=== PATIENT | male | born 1925 | race Caucasian/White ===

== ENCOUNTER 2016-09-16 09:31 | Emergency (ER) | payer MEDICARE, OTHER ==
[~2016-09-16 09:31] MED LIST: ASPI81 PO; CARB0.5D16 EACH EYE; CARB25TA PO; CEFT1INJ IV; DONE10TA14 PO; FERR324T4 PO; MEMA28CA PO; MILKSUS5 PO; PROS5TAB2 PO; STOO100C PO; TAB-TAB PO; TAMS0.4C67 PO; TOVI4TAB PO; VITA-83 PO; VITA100020 IM; VITATAB25 PO
[2016-09-16 09:38] VITALS: BP 127/56; PULSE 73; RESP 14; TEMP 97.8; O2SAT 94
[2016-09-16] MEDS ORDERED: TETANUS/DIPHTHERIA TOXOID ADULT 0.5 ML VIAL IM ONE (09:45)
--- NOTE | 2016-09-16 10:10 | PD ---
HPI Chief Complaint: Fall Time Seen by Provider: 09:36 Travel History International Travel<30 days: No Contact w/Intl Traveler<30days: No Traveled to known affect area: No History of Present Illness HPI Diagnoses an 89-year-old gentleman with history of hypertension, BPH, who is wheelchair-bound who presents today after having a mechanical fall out of his wheelchair. The patient resides in a jail and apparently fell forward will try to get out of his wheelchair. He reportedly struck his head with no loss of consciousness. The patient has laceration to his left upper scalp. Patient also has a small skin tear to his left hand. He reports pain in his head. He denies any neck pain. He denies any back pain. He also reports pain on his left elbow. There are no other complaints time my examination. The patient was unsure of his last tetanus shot however through records were able to ascertain that he had a tetanus shot in 2013. PFSH Past Medical History Anemia: Yes Autoimmune Disease: No Blood Disorders: No Anxiety: No Depression: Yes Cancer: Yes (SKIN) Cardiovascular Problems: Yes Chemotherapy: No Congestive Heart Failure: Yes Cerebrovascular Accident: Yes Coronary Artery Disease: Yes Dementia: Yes Diabetes: No Diminished Hearing: No Endocrine: No Gastrointestinal Disorders: Yes (CONSTIPATION) GERD: Yes Glaucoma: No Genitourinary: Yes (BPH) Headaches: No Hepatitis: No Hiatal Hernia: No Hypertension: Yes Immune Disorder: No Musculoskeletal: No Neurologic: Yes (PARKINSON'S ) Parkinson's Disease: Yes Psychiatric: No Reproductive: No Respiratory: No Immunizations Current: Yes Migraines: No Radiation Therapy: No Renal Failure: Yes Seizures: Yes Thyroid Disease: No Ulcer: No Past Surgical History Appendectomy: No Cholecystectomy: Yes Other Surgery: Yes Social History Alcohol Use: No Tobacco Use: No Allergies-Medications (Allergen,Severity, Reaction): Coded Allergies: Penicillin (Verified Allergy, Severe, Rash, 09/16/16) Reported Meds & Prescriptions Reported Meds & Active Scripts Active Reported Tylenol (Acetaminophen) 325 Mg Tab 650 Mg PO Q4H PRN Gabapentin 100 Mg Cap 100 Mg PO HS Tamsulosin (Tamsulosin HCl) 0.4 Mg Cap 0.4 Mg PO HS Donepezil 10 Mg Tab 10 Mg PO HS Vitamin D3 (Cholecalciferol) 1,000 Unit Chew 1,000 Units CHEW DAILY Potassium Chloride ER (Potassium Chloride) 10 Meq Cap 10 Meq PO DAILY Ditropan (Oxybutynin Chloride) 5 Mg Tab 5 Mg PO DAILY Namenda Xr (Memantine) 28 Mg Caper 28 Mg PO DAILY Vitamin C (Ascorbic Acid) 500 Mg Chew 500 Mg CHEW DAILY Refresh Opth Drops (Polyvinyl Alcohol-Povidone Opth Drops) 1.4-0.6% Drops 1-2 Drop EACH EYE PRN PRN Ferrous Sulfate 325 Mg Tab 325 Mg PO BID Colace (Docusate Sodium) 100 Mg Cap 100 Mg PO BID Artificial Tears Opth Drops (Artificial Tear Solution Opth Drops) 0.1-0.3% Soln Finasteride 5 Mg Tab 5 Mg PO DAILY Do not crush. Zantac (Ranitidine HCl) 150 Mg Tab 150 Mg PO DAILY Cyanocobalamin Inj (Cyanocobalamin) 1,000 Mcg/Ml Inj 1,000 Mcg IM Q30D Milk of Magnesia Liq (Magnesium Hydroxide) 400 Mg/5 Ml Susp 30 Ml PO Q6H PRN Systane Opth Drops (Polyethylene Glycol-Propylene Glycol Opth Drp) 0.4-0.3% Soln 1-2 Drop EACH EYE HS Melatonin 5 Mg Tab 3 Mg PO HS Sinemet (Carbidopa-Levodopa) 25-100 Mg Tab 1 Tab PO TID Aspirin 81 Mg Chew 81 Mg CHEW DAILY Review of Systems Except as stated in HPI: all other systems reviewed are Neg General / Constitutional: No: Fever HENT: Positive: Headaches (top of his head), No: Neck Pain Cardiovascular: No: Chest Pain or Discomfort, Irregular Rhythm Respiratory: No: Shortness of Breath Gastrointestinal: No: Nausea, Vomiting, Abdominal Pain Musculoskeletal: Positive: Pain (left elbow. Initial reports that he had shoulder pain however he denies on my exam.), Other (patient has somewhat contracted lower extremity secondary to being wheelchair bound.) Skin: Positive Other (small skin tear to left hand.) Neurologic: Positive: Weakness (generalized which is not new.), Headache (pain top of his head where he has laceration.), Other (no reported loss of consciousness) Physical Exam Narrative GENERAL: Developed well-nourished male in C-spine backboard immobilization. SKIN: Warm and dry. HEAD: There is a 3-1/2-4 cm laceration to the left top of his head. There is no exposed skull. There is slight oozing of blood noted. EYES: No scleral icterus. No injection or drainage. ENT: No nasal bleeding or discharge. Mucous membranes pink and moist. NECK: Trachea midline. In C-spine immobilization. CARDIOVASCULAR: Regular rate and rhythm. No murmur appreciated. RESPIRATORY: No accessory muscle use. Clear to auscultation. Breath sounds equal bilaterally. Decreased respiratory effort. GASTROINTESTINAL: Abdomen soft, non-tender, nondistended. MUSCULOSKELETAL: Chronic lower extremity contractions. There is a small skin tear noted over the left hand. The patient has good range of motion over his right upper extremity. The patient does have good range of motion in his left upper extremity however he does complain of discomfort in his left elbow. NEUROLOGICAL: Awake and alert. Normal speech. Moves extremities to command. Data Data Last Documented VS Vital Signs Date Time Temp Pulse Resp B/P Pulse Ox O2 Delivery O2 Flow Rate FiO2 09/16/16 09:38 97.8 73 14 127/[address] Brain W/O Iv Contrast(Rout) (09/16/16 09:36) Ct Cerv Spine W/O Contrast (09/16/16 ) Elbow, Limited (Ap&Lat) (09/16/16 09:36) Tetanus/Diphtheria Tox Adult (Tetanus/Di (09/16/16 09:45) Lidocai-Epi 1%-1:100,000 Inj (Xylocaine- (09/16/16 11:15) MDM Medical Decision Making Medical Screen Exam Complete: Yes Emergency Medical Condition: Yes Differential Diagnosis Laceration versus intracranial hemorrhage versus concussion Left elbow contusion versus fracture. Narrative Course 89-year-old gentleman who status post fall out of wheelchair. The patient had no reported loss consciousness. The patient does have a scalp laceration that has been repaired. The patient also has a left hand skin tear that is small. Patient was complaining of head pain and left elbow pain. CT brain, cervical spine, left elbow x-ray are all negative for acute injury. The patient has [address] He'll be discharged and no antibiotics will be started secondary to the location of the scalp on his laceration site. Rk will need to be removed in 7 days. He is clear to discharge back to his jail. Diagnosis Primary Impression: LACERATION WITHOUT FOREIGN BODY OF SCALP, INITIAL ENCOUNTER Additional Impressions: Blunt head trauma CONTUSION OF LEFT ELBOW, INITIAL ENCOUNTER Skin tear of left hand without complication Additional Instructions: Keep scalp wound clean and dry. Keep left hand skin tear clean and dry. Staple removal in 7 days. Return if evidence of infection. Disposition: 01 DISCHARGE HOME Condition: Stable Hernesto Fernández MD Sep 16, 2016 10:10
[2016-09-16] MEDS ORDERED: SINE25TA PO (10:16)
[2016-09-16] MEDS ORDERED: ASPI81CH CHEW (10:16)
[2016-09-16] MEDS ORDERED: MELA5TAB15 PO (10:16)
[2016-09-16] MEDS ORDERED: SYSTSOL EACH EYE (10:16)
[2016-09-16] MEDS ORDERED: COLA100C3 PO (10:17)
[2016-09-16] MEDS ORDERED: GABA100C4 PO (10:17)
[2016-09-16] MEDS ORDERED: MILKSUS PO (10:17)
[2016-09-16] MEDS ORDERED: OXYB5TAB10 PO (10:17)
[2016-09-16] MEDS ORDERED: CHOL100025 CHEW (10:17)
[2016-09-16] MEDS ORDERED: VITA500C9 CHEW (10:17)
[2016-09-16] MEDS ORDERED: FERR325T PO (10:17)
[2016-09-16] MEDS ORDERED: DONE10TA7 PO (10:17)
[2016-09-16] MEDS ORDERED: POTA10CA PO (10:17)
[2016-09-16] MEDS ORDERED: CYAN1000P IM (10:17)
[2016-09-16] MEDS ORDERED: ZANT150T2 PO (10:17)
[2016-09-16] MEDS ORDERED: TYLE325T PO (10:17)
[2016-09-16] MEDS ORDERED: MEMA28CA PO (10:17)
[2016-09-16] MEDS ORDERED: FINA5TAB2 PO (10:17)
[2016-09-16] MEDS ORDERED: ARTISOL2 (10:17)
[2016-09-16] MEDS ORDERED: REFRDRO EACH EYE (10:17)
[2016-09-16] MEDS ORDERED: TAMS0.4C4 PO (10:17)
--- NOTE | 2016-09-16 10:30 | RADRPT ---
EXAM DATE/TIME: 09/16/2016 09:50 [facility] COMPARISON: No previous studies available for comparison. INDICATIONS : Left elbow pain, unknown injury. MEDICAL HISTORY : None. SURGICAL HISTORY : None. ENCOUNTER: Initial ACUITY: 1 day PAIN SCORE: Non-responsive. LOCATION: Left elbow. FINDINGS: Two view examination of the left elbow demonstrates no soft tissue swelling, joint effusion, fracture or dislocation. Bony mineralization is normal. CONCLUSION: Normal examination for a patient of this age. Cj Manzano MD on September 16, 2016 at 10:27 Board Certified Radiologist. This report was verified electronically.
--- NOTE | 2016-09-16 10:53 | RADRPT ---
EXAM DATE/TIME: 09/16/2016 10:23 [facility] COMPARISON: CT BRAIN W/O CONTRAST, March 12, 2016, 14:50. INDICATIONS : Fell and hit face. RADIATION DOSE: 34.05 CTDIvol (mGy) MEDICAL HISTORY : Cerebrovascular disease. Dementia. Seizures. SURGICAL HISTORY : None. ENCOUNTER: Initial ACUITY: 1 day PAIN SCALE: 3/10 LOCATION: Bilateral cranial TECHNIQUE: Multiple contiguous axial images were obtained of the head. Using automated exposure control and adj ustment of the mA and/or kV according to patient size, radiation dose was kept as low as reasonably a chievable to obtain optimal diagnostic quality images. FINDINGS: The ventricles are symmetric and normal in appearance. No abnormal extra-axial fluid accumulation is identified. There is no evidence of intracranial hemorrhage or mass. There is nothing to suggest acut e infarction. There is opacification of the right frontal and anterior ethmoid sinuses. No evidence o f layering blood in the sinuses. Mastoids are clear. No skull fracture is noted. CONCLUSION: No acute intracranial injury Farrukh Martines MD on September 16, 2016 at 10:47 Board Certified Radiologist. This report was verified electronically.
--- NOTE | 2016-09-16 10:56 | RADRPT ---
EXAM DATE/TIME: 09/16/2016 10:23 [facility] COMPARISON: No previous studies available for comparison. INDICATIONS : Fell and hit face. Neck pain. RADIATION DOSE: 15.77 CTDIvol (mGy) MEDICAL HISTORY : Dementia. Seizures. Cerebrovascular disease. SURGICAL HISTORY : None. ENCOUNTER: Initial ACUITY: 1 day PAIN SCALE: 4/10 LOCATION: Bilateral neck TECHNIQUE: Volumetric scanning of the cervical spine was performed. Multiplanar reconstructions in the sagittal, coronal and oblique axial planes were performed. Using automated exposure control and adjustment o f the mA and/or kV according to patient size, radiation dose was kept as low as reasonably achievable to obtain optimal diagnostic quality images. 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 No prevertebral soft tiss ue swelling. No acute fracture. No bony destructive change. CONCLUSION: 1. Stable moderate to severe degenerative changes in the cervical spine as above. No acute findings. Cj Manzano MD on September 16, 2016 at 10:48 Board Certified Radiologist. This report was verified electronically.
[2016-09-16] MEDS ORDERED: LIDOCAINE 1%/EPINEPHrine 1:100,000 SOLN 20 ML VIAL INFIL ONE (11:15)
--- NOTE | 2016-09-16 11:26 | PD ---
Physical Exam Date Seen by Provider: Sep 16, 2016 Time Seen by Provider: 11:25 Narrative I was asked by Dr. Fernández to repair laceration the patient's scalp. Please see his documentation for full history and physical. Data Data Last Documented VS Vital Signs Date Time Temp Pulse Resp B/P Pulse Ox O2 Delivery O2 Flow Rate FiO2 09/16/16 09:38 97.8 73 14 127/[address] Brain W/O Iv Contrast(Rout) (09/16/16 09:36) Ct Cerv Spine W/O Contrast (09/16/16 ) Elbow, Limited (Ap&Lat) (09/16/16 09:36) Tetanus/Diphtheria Tox Adult (Tetanus/Di (09/16/16 09:45) Lidocai-Epi 1%-1:100,000 Inj (Xylocaine- (09/16/16 11:15) MDM Supervised Visit with CYNDI: No Procedures Procedure Narrative LACERATION LOCATION: Scalp LENGTH: 4 cm NUMBER OF STITCHES/RK: 6 rk REPAIR: The area of the laceration was prepped with Betadine and sterilely draped. The laceration was infiltrated with 1% lidocaine with epinephrine. The wound was copiously irrigated and explored without evidence of foreign body, tendon injury or neurovascular injury. The wound was closed using rk. This was a single layer repair. A sterile dressing was applied. The patient was advised to keep the dressing clean and dry. Patient tolerated the procedure well. Jessica Merino Sep 16, 2016 11:26
== END 2016-09-16 15:10 | disposition home or self-care (01) ==
LOC: NEPA 09:31
DX: S01.01XA Laceration without foreign body of scalp, initial encounter (principal); S50.02XA Contusion of left elbow, initial encounter; W05.0XXA Fall from non-moving wheelchair, initial encounter; Y92.129 Unspecified place in nursing home as the place of occurrence of the external cause
CPT/HCPCS: 12002; 70450; 72125; 73070